=== PATIENT | female | born 1945 | race Hispanic/Latino ===

== ENCOUNTER 2019-09-20 11:26 | Emergency (ER) | payer MEDICARE ==
[~2019-09-20] VITALS: Ht 157.5 cm; Wt 59.0 kg
[2019-09-20] MEDS ORDERED: COREG25 MG PO (11:40)
[2019-09-20] MEDS ORDERED: FAMCICLOVIR500 MG PO (12:15)
== END 2019-09-20 12:29 | disposition home or self-care (01) ==
LOC: ED 11:26
DX: B02.9 Zoster without complications (principal); I10 Essential (primary) hypertension; Z88.2 Allergy status to sulfonamides; Z79.899 Other long term (current) drug therapy
CPT/HCPCS: 99283